=== PATIENT | female | born 1990 | race Caucasian/White ===

== ENCOUNTER → 2018-07-28 | Outpatient (CLI) | payer OTHER ==
--- NOTE | 2018-07-28 09:00 | US ---
EXAMINATION TYPE: Transabdominal DATE OF EXAM: 07/28/2018 8:43 AM COMPARISON: NONE CLINICAL HISTORY: Z36 CONFIRM DATES. EXAM PERFORMED: Transabdominal (TA) EXAM MEASUREMENTS: GESTATIONAL AGE / DATING Physician Established: Not established yet Dates by LMP: Unknown Dates by First Scan: This is 1st scan Dates by Current Scan for: (13 weeks/4 days) EDC: 01/29/2019 MATERNAL ANATOMY Uterus: 17.7 x 6.4 x 11.0cm, anteverted Right Ovary: 2.8 x 1.9 x 2.9cm Left Ovary: 2.7 x 1.4 x 2.3cm Post CDS / Adnexa: wnl Presence of free fluid: no Presence of corpus luteal cyst: not seen Presence of subchorionic bleed: no GESTATION / SURVEY CRL: 7.4cm (13 weeks/4 days) Yolk Sac (normal less than 6mm): not seen Heart Rate: 155 bpm Rhythm: Normal IUP: Viable IUP Nuchal Translucency 10-14wks (normal less than 3mm): 2.1mm Date of LMP: Unknown Beta HcG (if available): Not available at time of exam. Single live intrauterine gestation is confirmed as gestational sac and pole are identified. Yol k sac is not clearly seen. Nuchal translucency noted within normal limits for late first trimester/ea rly second trimester gestation. No free fluid is seen in pelvic cul-de-sac. Both ovaries are identified. No suspicious extraovarian adnexal lesions are seen. IMPRESSION: Single live intrauterine gestation is confirmed, mean crown-rump length is 7.4 cm corresponding to 13 week 4 day old fetus.
[2018-07-28 09:19] LABS: Anisocytosis Slight; HCT 32.9 % (34.0-46.0); HGB 10.2 gm/dL (11.4-16.0); Hypochromasia Moderate; MCV 74.3 fL (80.0-100.0); Mean Platelet Volume 6.5; Microcytosis Slight; Platelet Count 239 k/uL (150-450); RBC 4.43 m/uL (3.80-5.40); RDW 16.3 % (11.5-15.5); WBC 8.7 k/uL (3.8-10.6)
[2018-07-28 09:37] LABS: Glucose 95 mg/dL (74-99)
[2018-07-28 18:13] LABS: HIV 1 AB Non-Reactive (Non-Reactive); HIV AB P24 Non-Reactive (Non-Reactive); HIV P24 AG Non-Reactive (Non-Reactive)
== END | disposition home or self-care (01) ==
LOC: RADUSWWP 08:24
PROVIDERS: ATTEND Obstetrics & Gynecology
DX: Z36.89 Encounter for other specified antenatal screening (principal); Z3A.13 13 weeks gestation of pregnancy
CPT/HCPCS: 76801; 82565; 82947; 85027; 86762; 86780; 86850; 86900; 86901; 87340; 87390

== ENCOUNTER → 2018-09-06 | Outpatient (CLI) | payer OTHER ==
--- NOTE | 2018-09-06 09:50 | US ---
EXAMINATION TYPE: US OB anatomy transabd DATE OF EXAM: 09/06/2018 COMPARISON: US HISTORY: O36.62X0 Large for dates LGA, Anatomy Scan TECHNIQUE: Transabdominal (TA) EXAM MEASUREMENTS: GESTATIONAL AGE / DATING Physician Established: (19 weeks/2 days) EDC: 01/29/2019 Dates by LMP: No prior Dates by First Scan: (19 weeks/2 days) EDC: 01/29/2019 Dates by Current Scan for: (18 weeks/5 days) EDC: 02/02/2019 SURVEY IUP: Single PLACENTA: Posterior PREVIA: Marginal MAGGIE: 11.4 cm Normal CERVICAL LENGTH (transabdominal: norm > 3.0cm): 4.5 cm BIOMETRY PRESENTATION: Breech BPD: 4.1 cm 18 weeks / 4 days HC: 16.1 cm 18 weeks / 6 days AC: 13.3 cm 18 weeks / 5 days FL: 3.0 cm 19 weeks / 1 days ESTIMATED WEIGHT IN GRAMS: 263.2 grams ESTIMATED WEIGHT IN LBS/OZ: 0 lbs. 9 oz. WEIGHT PERCENTAGE BASED ON ESTABLISHED DATE: 24.6 % HC/AC: 1.21 Normal FL/AC: 22 Normal HEART RATE: 142 bpm RHYTHM: Normal ANATOMY SEEN (within normal limits): * Lateral Vent (< 1 cm) 0.7 cm * Cisterna Magna (< 1.1 cm) 0.5 cm * Nuchal Fold (< 0.6 cm) 0.3 cm * Cerebellum (varies with age) 1.9 cm Choroid Plexus (bilateral) Midline Falx Cavus Septi Pellucidi Four Chamber Heart Stomach Situs Nose / Lips Diaphragm Kidneys (bilateral) Bladder Cord Insert Three Vessel Cord Longitudinal Spine Transverse Spine Arms (bilateral) Legs (bilateral) ANATOMY NOT SEEN: Outflow tracts: LVOT/RVOT- Spine Up IMPRESSION: Single, viable IUP, Marginal placental previa/ Outflow tracts not visualized due to fetus spine up, p t coming back September 20 at 8:20 for Call Back
== END ==
LOC: RADUSWWP 08:19
PROVIDERS: ATTEND Obstetrics & Gynecology
DX: O36.62X0 Maternal care for excessive fetal growth, second trimester, not applicable or unspecified (principal); Z3A.19 19 weeks gestation of pregnancy
CPT/HCPCS: 76811

== ENCOUNTER → 2018-09-20 | Outpatient (CLI) | payer OTHER ==
--- NOTE | 2018-09-20 09:42 | US ---
EXAMINATION TYPE: US OB Call Back DATE OF EXAM: 09/20/2018 COMPARISON: NONE CLINICAL HISTORY: OBCALL BACK. GESTATIONAL AGE / DATING Dates by Initial Survey Scan: (21 weeks/2 days) EDC: 01/29/2019 HEART RATE: 140 bpm RHYTHM: Normal ANATOMY SEEN (second anatomic survey look): Four Chamber Heart: Outflow tracts:? LVOT/RVOT ANATOMY STILL NOT SEEN (requiring an additional callback appt): NONE IMPRESSION: 4CH, LVOT and RVOT visualized on today's callback exam, appears wnl
== END | disposition home or self-care (01) ==
LOC: RADUSWWP 08:30
PROVIDERS: ATTEND Obstetrics & Gynecology
DX: Z53.9 Procedure and treatment not carried out, unspecified reason (principal)

== ENCOUNTER 2019-01-15 04:05 | Outpatient (CLI) | payer OTHER ==
[2019-01-15 04:59] LABS: Appearance,Urine Cloudy (Clear); Bilirubin,Urine Negative (Negative); Blood,Urine Trace (Negative); Color,Urine Yellow; Glucose,Urine (UA) Negative (Negative); Ketones,Urine Negative (Negative); Leukocyte Esterase,Urine Moderate (Negative); Mucus,Urine Rare /hpf; Nitrite,Urine Negative (Negative); PH, Urine 6.5 (5.0-8.0); Protein,Urine Negative (Negative); RBC,Urine <1 /hpf (0-5); Squamous Epithelial Cell,Urine 6 /hpf (0-4); Urobilinogen,Urine <2.0 mg/dL (<2.0); WBC,Urine 2 /hpf (0-5)
[2019-01-15 05:44] VITALS: BP 142/90; PULSE 106; RESP 16; TEMP 98.3
--- NOTE | 2019-01-15 07:50 | US ---
EXAMINATION TYPE: US OB BPP wo non-stress DATE OF EXAM: 01/15/2019 COMPARISON: Previous study dated 09/06/2018. CLINICAL HISTORY: non reactive NST. EXAM PERFORMED: Transabdominal (TA) BPP PARAMETERS: PRESENTATION: Vertex HEART RATE: 135 bpm RHYTHM: Normal MAGGIE: 11.4 DIAPHRAGM IMAGED: yes BPP SCORIN. Breathin (1 episode of breathing of 30 second duration in 30 minutes of scanning time) 2. Movement: 2 (at least 3 discrete body movements in 30 minutes) 3. Tone: 2 (1 episode of active flexion/extension of limb) 4. MAGGIE: 2 (MAGGIE index > 5cm) TOTAL SCORE: 8 / 8
--- NOTE | 2019-01-15 22:08 | P.MSEPDOC ---
Presenting Problems - Arrival Data Date of Arrival on Unit: 01/15/19 Time of Arrival on Unit: 04:10 Mode of Transport: Portable - Complaint OB-Reason for Admission/Chief Complaint: Vaginal Bleeding Medical History - Information : 3 Para: 2 Number of Living Children: 2 - Gestational Age Gestational Age by MINA (wks/days): 38 Weeks and 0 Days - History Complications: Prior Review of Systems - Review of Systems Constitutional: No problems Breast: No problems ENT: No problems Cardiovascular: No problems Respiratory: No problems Gastrointestinal: No problems Genitourinary: No problems Musculoskeletal: No problems Neurological: No problems Skin: No problems Vital Signs - Temperature Temperature: 98.3 F Temperature Source: Oral - Pulse Right Sitting Brachial Pulse Rate: 106 Pulse Assessment Method: Pulse Oximetry - Respirations Respiratory Rate: 16 Oxygen Delivery Method: Room Air O2 Sat by Pulse Oximetry: 100 - Blood Pressure Right Arm Sitting Blood Pressure: 142/90 Blood Pressure Mean: 107 Blood Pressure Source: Automatic Cuff Medical Screen Scoring (Pre) - Cervical Exam Dilation: 0 cm = 0 Effacement: Exam Deferred Membranes: Intact - Uterine Contractions Frequency: > 5 minutes apart = 1 Duration: > 40 seconds = 2 Intensity: N/A - Maternal Vital Signs Maternal Temperature: N/A Maternal Blood Pressure: N/A Signs of Preeclampsia: N/A Maternal Respirations: N/A - Maternal Trauma Maternal Trauma: N/A - Assessment - Baby A Baseline FHR: 145 Heart Rate - NICHD Category: Category II (Indeterminate) = 3 NST: Non-reactive = 3 Position: N/A Station: N/A - Total Score - Baby A Total Score - Baby A: 9 - Total Score - Baby B Total Score - Baby B: 3 - Total Score - Baby C Total Score - Baby C: 3 - Level of Risk - Baby A Level of Risk - Baby A: Medium (6-9) - Level of Risk - Baby B Level of Risk - Baby B: Low (0-5) - Level of Risk - Baby C Level of Risk - Baby C: Low (0-5) Physician Notification (Pre) - Physician Notified Physician Notified Date: 01/15/19 Physician Notified Time: 05:30 Physician/Practitioner Notifed:: dr Kohler Spoke With: dr kohler New Order Received: Yes - Notification Comment Comment: observe additional hour for NST, if still non reactive order BPP Physician Notification (Post) - Physician Notified Physician Notified Date: 01/15/19 Physician Notified Time: 07:49 Physician/Practitioner Notified:: Jose F Dow Order Received: Yes (D/c home) Disposition - Disposition OB Disposition: Discharge to home Discharge Date: 01/15/19 Discharge Time: 07:51 I agree with the RN Medical Screening Exam: Yes Risk & Benefit of care provided described in d/c instruction: Yes Diagnosis: OTHER ANTEPARTUM HEMORRHAGE, THIRD TRIMESTER
== END 2019-01-15 07:51 | disposition home or self-care (01) ==
LOC: FBPOP 04:05
PROVIDERS: ATTEND Obstetrics & Gynecology
DX: O46.8X3 Other antepartum hemorrhage, third trimester (principal); Z3A.38 38 weeks gestation of pregnancy
CPT/HCPCS: 59025; 81001; 76819; G0463; 99213

== ENCOUNTER 2019-01-25 05:41 | Inpatient (IN) | payer OTHER ==
[2019-01-23 15:07] VITALS: BMI 39.5
--- NOTE | 2019-01-24 06:20 | P.HPOB ---
History of Present Illness H&P Date: 01/24/19 Chief Complaint: Repeat section and possible tubal ligation. This patient is a pleasant 29-year-old 3 para 2 female estimated date of confinement 01/29/2019 estimated gestational age 39 weeks who presents to labor and delivery for elective repeat section and possible tubal ligation. Patient's care has been uncomplicated except for a marginal previa which resolved at 28 weeks. Patient's had 2 previous sections request repeat. At the time of this dictation patient was undecided as to whether or not she wanted a tubal ligation or not. Review of Systems Gastrointestinal: Reports heartburn Genitourinary: Reports Menstruation: Reports amenorrhea Past Medical History Past Medical History: No Reported History History of Any Multi-Drug Resistant Organisms: None Reported Past Surgical History: Section, Tonsillectomy Additional Past Surgical History / Comment(s): cyst removed from back of neck Past Anesthesia/Blood Transfusion Reactions: No Reported Reaction Past Psychological History: No Psychological Hx Reported Smoking Status: Never smoker Past Alcohol Use History: None Reported Past Drug Use History: None Reported - Past Family History Mother History Unknown: Yes Family Medical History: Hypertension Medications and Allergies Home Medications Medication Instructions Recorded Confirmed Type Pnv,Calcium 72/Iron/Folic Acid 1 each PO DAILY 06/19/15 01/23/19 History [ Plus Tablet] Ferrous Sulfate [Iron (65 MG 325 mg PO DAILY 01/23/19 01/23/19 History Elemental)] Allergies Allergy/AdvReac Type Severity Reaction Status Date / Time cefaclor [From Ceclor] Allergy Unknown Verified 01/23/19 15:05 Childhood Exam Intake and Output 01/23/19 01/23/19 01/24/19 14:59 22:59 06:59 Other: Weight 111.13 kg - OBG Physical Exam Abdomen: bowel sounds normal, no diffuse tenderness, no bruit present, no guarding noted, no hepatomegaly, no splenomegaly, no mass Vulva: both: normal Vagina: normal moisture, no discharge Cervix: no lesion (Cervix in the office previously was closed), no discharge Uterus: enlarged (Fundal height is greater than stated dates.) Results blood work shows she is oh positive, rubella immune, RPR is nonreactive, hepatitis B is negative, HIV is nonreactive, Glucola was normal, group B strep was negative, ultrasounds have been normal. Assessment and Plan Assessment: This is a pleasant 29-year-old 3 para 2 female 39 weeks gestation previous section 2 as requested repeat section and possible tubal ligation. Patient does understand if she has a tubal ligation is considered permanent however there is a failure rate of approximately 5 or less per thousand procedures done. Patient also understands surgery itself and apparently has risks including risks of infection, bleeding, possible injury bowel, bladder, vessels, and/or other organs. All the patient's questions are answered and a written consent is obtained. (1) 39 weeks gestation of Status: Acute Code(s): Z3A.39 - 39 WEEKS GESTATION OF SNOMED Code(s): 29269028 (2) Previous delivery affecting Status: Acute Code(s): O34.219 - MATERNAL CARE FOR UNSP TYPE SCAR FROM PREVIOUS DEL SNOMED Code(s): 270969536
[2019-01-25] MEDS ORDERED: CITRIC ACID-SODIUM CITRATE 15 ML CUP PO ONE (05:48)
[2019-01-25] MEDS ORDERED: LACTATED RINGERS 1,000 ML IV SCH ×2 (05:48→09:12)
[2019-01-25] MEDS ORDERED: LACTATED RINGERS 1,000 ML IV ONE (05:48)
--- NOTE | 2019-01-25 06:25 | P.PN ---
Progress Note - Text Progress Note Date: 01/25/19 Family and I and her discussed possible tubal ligation. I went over in detail the fact that it is permanent and the possible risks/benefits from having this done. At this point the patient would like to not have a tubal or less there is evidence of thin lower uterine segment or scar tissue from her previous section, and then at that point she would like the tubal done. She is certain that she is done having children however otherwise might have her get a vasectomy. Therefore we'll make a decision at the time of surgery. She was consented for a tubal ligation, possible
[2019-01-25 06:33] LABS: Basophils % (A) 0 %; Eosinophils # (A) 0.1 k/uL (0-0.7); Eosinophils % (A) 1 %; HCT 37.2 % (34.0-46.0); HGB 11.8 gm/dL (11.4-16.0); Lymphocytes # (A) 2.6 k/uL (1.0-4.8); Lymphocytes % (A) 26 %; MCH 25.8 pg (25.0-35.0); MCHC 31.7 g/dL (31.0-37.0); MCV 81.5 fL (80.0-100.0); Mean Platelet Volume 8.1; Monocytes # (A) 0.7 k/uL (0-1.0); Monocytes % (A) 7 %; Neutrophils # (A) 6.3 k/uL (1.3-7.7); Neutrophils % (A) 63 %; Platelet Count 208 k/uL (150-450); RBC 4.56 m/uL (3.80-5.40); RDW 15.9 % (11.5-15.5)
[2019-01-25] MEDS ORDERED: CLINDAMYCIN 900 MG in DEXTROSE 5% IN WATER 50 ML IVPB ONE ×2 (07:15)
[2019-01-25] MEDS ORDERED: diphenhydrAMINE 50 MG/ML 1 ML VIAL IVP PRN ×2 (08:29→09:12)
[2019-01-25] MEDS ORDERED: NALBUPHINE 10 MG/ML (1 ML AMP) IV PRN (08:29)
[2019-01-25] MEDS ORDERED: MORPHINE SULFATE 2 MG/ML SYRINGE IVP PRN (08:29)
[2019-01-25] MEDS ORDERED: NALOXONE 0.4 MG/ML 1 ML VIAL IV PRN ×2 (08:29→09:12)
[2019-01-25] MEDS ORDERED: ONDANSETRON 4 MG/2 ML VIAL IVP PRN ×2 (08:29→09:12)
--- NOTE | 2019-01-25 08:32 | P.OP ---
Date of Procedure: 01/25/19 Preoperative Diagnosis: #1: 39-3/7 week . #2: Previous section desires repeat Postoperative Diagnosis: Same Procedure(s) Performed: Repeat low transverse section Anesthesia: spinal Surgeon: Uriel Hoffman Rock Crusher Operator #1: Graham Julian Estimated Blood Loss (ml): 800 Pathology: none sent Condition: stable Disposition: floor Indications for Procedure: Please see dictated H&P for intimate details of this patient's admission. Brief summary this pleasant 29-year-old 3 para 2 female 39-3/7 weeks gestation who is admitted to labor and delivery for elective repeat section. Patient also discussed preoperatively about a tubal ligation and she has requested a tubal ligation if there is evidence of pathology remaining adhesions were thin lower uterine segment on her uterus. Patient does not want a tubal ligation if all looks normal. Patient also understands the risks of the surgery including risks of infection, bleeding, possible injury bowel, bladder, vessels, and/or other organs. Patient understands the risk of DVT and pulmonary embolism. All the patient's questions are answered and a written consent is obtained. Operative Findings: This is a vigorous viable female infant Apgars 9 and 9 delivery time was 0803 hrs. The uterus tubes and ovaries appear normal for term gestation Description of Procedure: This patient has a Martinez catheter placed to straight drain. She is subsequently taken to the operating room where she sat up and spinal anesthetic is administered without incident. With an adequate level of anesthesia she has abdominal prep and drape. Scalpels then taken in the previous Pfannenstiel skin incision is made. A second scalpel is taken down the fascia the fascia scored with a knife. Fascial incision extended bilaterally using the Gonzales scissors. Fascia is then dissected off the rectus muscles sharply. Peritoneum was then identified and entered sharply. Peritoneal incision is extended superior and inferior without difficulty. Bladder blade is placed. Bladder peritoneum was taken off the lower uterine segment sharply. Scalpels and taken a low transverse uterine incision is then made. Using a hemostat I into the uterine cavity bluntly and there is loss of clear fluid. This incision is extended bluntly. 's head is then guided through the incision with fundal pressure with delivery of the infant's head. There is no evidence of a nuchal cord. We then have delivery the anterior posterior shoulder and rest this infant's body. Is a vigorous viable female infant Apgars 9 and 9 delivery time was 0803 hrs. After delivery of the the umbilical cord is doubly clamped and cut appears to be trivascular. The placenta is then manually extracted intact and the uterus externalized. Uterine incision demarcated with Carias clamps. Uterine lower uterine segment seems thick and there is no evidence of any problems. There is no evidence of any adhesions and therefore I discussed again with the patient and her and we elected not to do a tubal ligation per her request. Uterine incision then closed using 0 Vicryl running locked fashion 2 layers in excellent hemostasis is noted. The bladder peritoneum was reapproximated using a 3-0 Vicryl in the usual fashion. Excess fluid is removed from the abdomen and pelvis. Uterus placed back into the abdomen. Parietal peritoneum was then closed using 0 Vicryl running fashion. Rectus muscles reapproximated Vicryl interrupted fashion. Fascia is then closed using 0 PDS. Fascial incision is intact and hemostatic. Subcutaneous tissues and closed using a 3-0 Vicryl. Skin is and closed using emre. All counts are correct 3. There are no complications. Infant and mother are stable in the birthing suite.
[2019-01-25] MEDS ORDERED: METOCLOPRAMIDE 5 MG/ML 2 ML VIAL IVP PRN (09:12)
[2019-01-25] MEDS ORDERED: ACETAMINOPHEN TAB 325 MG TAB PO PRN (09:12)
[2019-01-25] MEDS ORDERED: SIMETHICONE 80 MG CHEWABLE PO PRN (09:12)
[2019-01-25] MEDS ORDERED: ZOLPIDEM 5 MG TAB PO PRN (09:12)
[2019-01-25] MEDS ORDERED: diphenhydrAMINE 25 MG CAP PO PRN (09:12)
[2019-01-25] MEDS ORDERED: OXYTOCIN 20 UNITS/1000 ML NS 1,000 ML IV SCH (09:12)
[2019-01-25] MEDS ORDERED: LANOLIN CREAM 5 GM TUBE TOPICAL PRN (09:12)
[2019-01-25] MEDS ORDERED: KETOROLAC 30 MG/ML 1 ML VIAL IVP PRN (09:12)
[2019-01-25] MEDS ORDERED: IBUPROFEN 600 MG TAB PO PRN (09:12)
[2019-01-25] MEDS: SENNOSIDES-DOCUSATE SODIUM 1 EACH TAB PO SCH ×2 (09:17→19:49)
[2019-01-26] MEDS: KETOROLAC 30 MG/ML 1 ML VIAL IVP PRN ×2 (02:01→08:20)
--- NOTE | 2019-01-26 06:03 | P.PNOBGPC ---
Subjective - Subjective Patient reports: Reports appetite normal, Reports voiding normally, Reports pain well controlled, Reports ambulating normally : doing well Objective - Vital Signs Latest vital signs: Vital Signs Temp Pulse Resp BP Pulse Ox 01/26/19 04:00 98.3 F 78 16 133/76 99 01/26/19 00:00 98.3 F 90 16 130/72 98 01/25/19 20:00 98.2 F 96 16 131/72 99 01/25/19 18:00 20 01/25/19 16:03 98 01/25/19 16:01 97.8 F 79 16 125/61 98 01/25/19 16:00 97.8 F 79 16 125/61 01/25/19 14:11 98 F 86 16 118/61 100 01/25/19 11:27 16 100 01/25/19 10:28 97.1 F L 70 16 128/71 100 01/25/19 09:58 69 16 121/63 100 01/25/19 09:30 16 98 01/25/19 09:28 70 16 129/65 98 01/25/19 09:13 74 16 112/70 99 01/25/19 08:58 81 16 135/70 99 01/25/19 08:43 74 16 129/59 99 01/25/19 08:30 16 99 01/25/19 08:28 97.4 F L 77 16 117/52 100 01/25/19 06:10 96.8 F L 87 16 134/74 99 Intake and Output 01/25/19 01/25/19 01/26/19 14:59 22:59 06:59 Output Total 800 1700 1 Balance -800 -1700 -1 Output: Urine 1700 1 Uretheral (Martinez) 700 Estimated Blood Loss 800 Other: # Voids 1 450 - Exam Lungs: bilateral: normal Chest: Normal S1, Normal S2 Extremities: Present: normal Abdomen: Present: normal appearance, soft. Absent: distention, tenderness Incision: Present: normal, dry, intact Uterus: Present: normal, firm - Labs Labs: Abnormal Lab Results - Last 24 Hours (Table) 01/25/19 Range/Units 06:22 RDW 15.9 H (11.5-15.5) % Assessment and Plan Assessment: Postoperative day #1. Patient is resting without complaints. Vital signs are stable she's afebrile. Uterus is firm nontender and her incision is intact and dry. My impression is a normal postoperative course. Plan is to continue routine postoperative care, check a CBC, encourage ambulation. (1) 39 weeks gestation of Current Visit: No Status: Acute Code(s): Z3A.39 - 39 WEEKS GESTATION OF SNOMED Code(s): 70233682 (2) Previous delivery affecting Current Visit: No Status: Acute Code(s): O34.219 - MATERNAL CARE FOR UNSP TYPE SCAR FROM PREVIOUS DEL SNOMED Code(s): 117566698
[2019-01-26 07:40] LABS: Basophils % (A) 0 %; Eosinophils # (A) 0.2 k/uL (0-0.7); Eosinophils % (A) 2 %; HCT 36.4 % (34.0-46.0); HGB 11.4 gm/dL (11.4-16.0); Lymphocytes % (A) 19 %; MCH 25.7 pg (25.0-35.0); MCHC 31.4 g/dL (31.0-37.0); MCV 81.7 fL (80.0-100.0); Mean Platelet Volume 7.9; Monocytes # (A) 0.7 k/uL (0-1.0); Monocytes % (A) 6 %; Neutrophils # (A) 7.7 k/uL (1.3-7.7); Neutrophils % (A) 71 %; Platelet Count 205 k/uL (150-450); RBC 4.45 m/uL (3.80-5.40); RDW 15.9 % (11.5-15.5); WBC 10.7 k/uL (3.8-10.6)
[2019-01-26] MEDS ORDERED: KETOROLAC 30 MG/ML 1 ML VIAL ONE (07:46)
[2019-01-26] MEDS ORDERED: OXYTOCIN 10 UNIT/ML 1 ML VIAL ONE (07:46)
[2019-01-26] MEDS ORDERED: LACTATED RINGERS 1,000 ML BAG IV ONE (07:46)
[2019-01-26] MEDS ORDERED: NALBUPHINE 10 MG/ML (1 ML AMP) ONE (07:46)
[2019-01-26] MEDS ORDERED: MORPHINE SULFATE (PF) 0.3 MG/0.3 ML SYR ONE (07:46)
--- NOTE | 2019-01-26 07:50 | P.PN ---
Progress Note - Text Progress Note Date: 01/26/19 patient was seen at 7:15 AM today: Postoperative day 1 status post section under spinal anesthesia, and intrathecal morphine given for postoperative analgesia, patient doing well, there is no anesthesia related complications, Patient had no headache, vital signs stable , Assessment and plan= postop day 1 status post , doing well there is no anesthesia related complication.
[2019-01-26] MEDS: SENNOSIDES-DOCUSATE SODIUM 1 EACH TAB PO SCH ×2 (08:20→20:16)
[2019-01-26] MEDS: HYDROcodone/APAP 5-325MG 1 EACH TAB PO PRN ×3 (11:53→23:58)
[2019-01-26 15:44] VITALS: RESP 16
--- NOTE | 2019-01-27 06:27 | P.PNOBGPC ---
Subjective - Subjective Patient reports: Reports appetite normal, Reports voiding normally, Reports pain well controlled, Reports ambulating normally : doing well Objective - Vital Signs Latest vital signs: Vital Signs Temp Pulse Resp BP Pulse Ox 01/27/19 00:00 98.9 F 72 16 128/76 99 01/26/19 15:38 98.2 F 79 16 114/60 01/26/19 08:00 98.1 F 84 18 121/64 100 - Exam Lungs: bilateral: normal Chest: Normal S1, Normal S2 Extremities: Present: normal Abdomen: Present: normal appearance, soft. Absent: distention, tenderness Incision: Present: normal, dry, intact Uterus: Present: normal, firm - Labs Labs: Abnormal Lab Results - Last 24 Hours (Table) 01/26/19 Range/Units 07:05 WBC 10.7 H (3.8-10.6) k/uL RDW 15.9 H (11.5-15.5) % Assessment and Plan Assessment: Post operative day #2. Patient is resting without complaints and considering going home today. Vital signs are stable she is afebrile. Incision is intact and dry. CBC from yesterday was normal. Impression is a normal course. Plan is to continue routine postoperative care and most likely discharge home later today or tomorrow. (1) 39 weeks gestation of Current Visit: No Status: Acute Code(s): Z3A.39 - 39 WEEKS GESTATION OF SNOMED Code(s): 77423943 (2) Previous delivery affecting Current Visit: No Status: Acute Code(s): O34.219 - MATERNAL CARE FOR UNSP TYPE SCAR FROM PREVIOUS DEL SNOMED Code(s): 122636358
--- NOTE | 2019-01-27 06:34 | P.DS ---
Providers Date of admission: 01/25/19 05:41 Expected date of discharge: 01/27/19 Attending physician: Uriel Hoffman Primary care physician: Stated None - Discharge Diagnosis(es) (1) 39 weeks gestation of Current Visit: No Status: Acute (2) Previous delivery affecting Current Visit: No Status: Acute Hospital Course: Please see dictated H&P for intimate details of this patient's admission. Brief summary this pleasant 29-year-old 3 para 2 female 39-3/7 weeks gestation who is admitted to labor and delivery for elective repeat section. Patient went a repeat low transverse section for viable female infant. Please see dictated delivery note. day #1 patient is without complaints. Postoperative and 2 patient's felt be stable for discharge home follow up with me in 1 week. Procedures: Repeat low transverse section Patient Condition at Discharge: Good Plan - Discharge Summary Discharge Rx Participant: Yes New Discharge Prescriptions: New Ibuprofen [Motrin] 600 mg PO Q6HR PRN #40 tab PRN Reason: Mild Pain Or Fever >= 100.5 HYDROcodone/APAP 5-325MG [L[place]comb 5-325] 1 each PO Q4HR PRN #18 tab PRN Reason: Moderate Pain No Action Pnv,Calcium 72/Iron/Folic Acid [ Plus Tablet] 1 each PO DAILY Ferrous Sulfate [Iron (65 MG Elemental)] 325 mg PO DAILY Discharge Medication List Pnv,Calcium 72/Iron/Folic Acid [ Plus Tablet] 1 each PO DAILY 06/19/15 [History] Ferrous Sulfate [Iron (65 MG Elemental)] 325 mg PO DAILY 01/23/19 [History] HYDROcodone/APAP 5-325MG [[place]comb 5-325] 1 each PO Q4HR PRN #18 tab 01/27/19 [Rx] Ibuprofen [Motrin] 600 mg PO Q6HR PRN #40 tab 01/27/19 [Rx] Follow up Appointment(s)/Referral(s): Uriel Hoffman MD [STAFF PHYSICIAN] - 02/02/19 1:30 pm (Patient also has a appointment on March 07 at 3:15 PM.) Patient Instructions/Handouts: (DC) Activity/Diet/Wound Care/Special Instructions: No heavy lifting or strenuous activity for 6 weeks. Please call if any fever, chills, excessive vaginal bleeding, and/or abdominal pain. Discharge Disposition: HOME SELF-CARE
[2019-01-27] MEDS: HYDROcodone/APAP 5-325MG 1 EACH TAB PO PRN (08:16)
[2019-01-27] MEDS: SENNOSIDES-DOCUSATE SODIUM 1 EACH TAB PO SCH (08:17)
[2019-01-27 08:48] VITALS: BP 144/71; PULSE 90; TEMP 97.6
== END 2019-01-27 14:30 | disposition home or self-care (01) | DRG 788 ==
LOC: 4FBP 05:41
PROVIDERS: ADMIT Obstetrics & Gynecology; ATTEND Obstetrics & Gynecology
PROC: 10D00Z1 Extraction of Products of Conception, Low, Open Approach (ICD-10-PCS; principal; 2019-01-25 08:00)
DX: O34.211 Maternal care for low transverse scar from previous cesarean delivery (principal); Z3A.39 39 weeks gestation of pregnancy; R12 Heartburn; O99.62 Diseases of the digestive system complicating childbirth; Z37.0 Single live birth; Z88.1 Allergy status to other antibiotic agents; Z82.49 Family history of ischemic heart disease and other diseases of the circulatory system
CPT/HCPCS: 85025; 86850; 86900; 86901